=== PATIENT | male | born 1940 | race American Indian/Alaskan Native ===

== ENCOUNTER 2018-12-16 13:49 | Observation (INO) | payer MEDICARE ==
[2018-12-16 14:35] VITALS: O2SAT 98
[2018-12-16 15:39] LABS: BASO # 0.01 K/mm3 (0.0-2.0); BASO % 0.2 % (0.0-3.0); EOS % 0.8 % (1.5-5.0); HEMOGLOBIN 11.1 g/dL (14.0-18.0); LYMPH # 1.9 (1.2-3.4); LYMPH % 36.8 % (22.0-35.0); MEAN CELL VOLUME 61.3 fl (80.0-105.0); MEAN CORPUSCULAR HGB CONC 32.6 g/dl (31.0-37.0); MEAN PLATELET VOLUME 9.4 fl (7.0-11.0); MONO # 0.4 (0.1-0.6); RBC 5.56 10^6/uL (3.5-6.1); RED CELL DISTRIBUTION WIDTH 14.5 % (11.5-14.5); WHITE BLOOD COUNT 5.1 10^3/uL (4.5-11.0)
[2018-12-16] MEDS ORDERED: Iohexol 240 (50 ml) ONE (15:39)
[2018-12-16 15:49] LABS: INR 1.18; PARTIAL THROMBOPLASTIN TIME 31.6 Seconds (26.9-38.3); PROTHROMBIN TIME 13.1 SECONDS (9.4-12.5); URINE BILIRUBIN NEGATIVE (NEGATIVE); URINE BLOOD NEGATIVE (NEGATIVE); URINE GLUCOSE (UA) >=1000 mg/dL (NEGATIVE); URINE LEUKOCYTE ESTERASE NEGATIVE Leu/uL (NEGATIVE); URINE PROTEIN NEGATIVE mg/dL (<30 mg/dL); URINE UROBILINOGEN 0.2 E.U./dL (<1 E.U./dL)
[2018-12-16 15:50] LABS: URINE APPEARANCE CLEAR (CLEAR); URINE COLOR YELLOW (YELLOW)
[2018-12-16 16:00] LABS: TROPONIN I < 0.01 ng/mL
[2018-12-16 16:12] LABS: ALB/GLOB RATIO 1.1 (1.1-1.8); ALBUMIN 4.1 g/dL (3.0-4.8); ALT/SGPT 69 U/L (7-56); AST/SGOT 48 U/L (17-59); BLOOD UREA NITROGEN 26 mg/dL (7-21); CALCIUM 9.4 mg/dL (8.4-10.5); GFR NON-AFRICAN AMERICAN > 60; LIPASE 75 U/L (23-300)
[2018-12-16] MEDS ORDERED: Sodium Chloride 0.9% 500 ML IV STA (16:31)
--- NOTE | 2018-12-16 16:38 | ED PDOC ---
Arrival/HPI - General Chief Complaint: Abdominal Pain Time Seen by Provider: 12/16/18 14:10 Historian: Patient - History of Present Illness Narrative History of Present Illness (Text): 12/16/18 16:29 A 78 year old male, whose past medical history includes diabetes and hypertension, presents to the emergency department complaining of mid-abdominal pain for a while now. Patient reports was just seen 2 nights at [facility] and was evaluated. Patient was released yesterday from [facility]. States CT Abd/Pelvis was performed. Today, he was on his way to [employer] when he started developing pain from lower abdomen, radiating up to the epigastric region. He thought it had to do with needing to eat so he went to have some food, however had no relief. Patient denies any fever, chills, nausea, vomiting, diarrhea, chest pain, shortness of breath, cough, or any other complaints at this time. Past Medical History - Provider Review Nursing Documentation Reviewed: Yes - Cardiac Hx Hypertension: Yes - Psychiatric Hx Substance Use: No Family/Social History - Physician Review Nursing Documentation Reviewed: Yes Family/Social History: No Known Family HX Smoking Status: Never Smoked Hx Alcohol Use: No Hx Substance Use: No Allergies/Home Meds Allergies/Adverse Reactions: Allergies No Known Allergies Allergy (Verified 12/16/18 14:35) Home Medications: Home Meds Medication Instructions Recorded Confirmed No Known Home Med 12/16/18 12/16/18 Review of Systems - Physician Review All systems were reviewed & negative as marked: Yes - Review of Systems Constitutional: absent: Fevers, Night Sweats Respiratory: absent: SOB Cardiovascular: absent: Chest Pain Gastrointestinal: Abdominal Pain. absent: Diarrhea, Nausea, Vomiting Physical Exam Vital Signs Reviewed: Yes Vital Signs Temp Pulse Resp BP Pulse Ox 12/16/18 14:20 97.5 F L 86 18 175/93 H 98 Temperature: Afebrile Blood Pressure: Hypertensive Pulse: Regular Respiratory Rate: Normal Appearance: Positive for: Well-Appearing, Non-Toxic, Comfortable Pain Distress: None Mental Status: Positive for: Alert and Oriented X 3 - Systems Exam Head: Present: Atraumatic, Normocephalic Pupils: Present: PERRL Extroacular Muscles: Present: EOMI Conjunctiva: Present: Normal Mouth: Present: Moist Mucous Membranes Neck: Present: Normal Range of Motion Respiratory/Chest: Present: Clear to Auscultation, Good Air Exchange. No: Respiratory Distress, Accessory Muscle Use Cardiovascular: Present: Regular Rate and Rhythm, Normal S1, S2. No: Murmurs Abdomen: No: Tenderness, Distention, Peritoneal Signs Back: Present: Normal Inspection Upper Extremity: Present: Normal Inspection. No: Cyanosis, Edema Lower Extremity: Present: Normal Inspection. No: Edema Neurological: Present: GCS=15, CN II-XII Intact, Speech Normal Skin: Present: Warm, Dry, Normal Color. No: Rashes Psychiatric: Present: Alert, Oriented x 3, Normal Insight, Normal Concentration Medical Decision Making ED Course and Treatment: 12/16/18 20:52 Plan : - IV - Labs - UA, urine cx - EKG - CXR - Reassess / disposition - CT A/P CXR : NAD. EKG : NSR at 82 bpm, +RBBB, +LVH, +T wave inversions in the lateral leads, no prior EKGs available for comparison. Labs reviewed, trop (-), rest of the labs wnl. CT A/P : IMPRESSION: 1. Mild rectal fecal impaction. Moderate constipation suspected. No bowel obstruction, mesenteric edema or ascites. Uncomplicated diverticular change are scattered involving the colon but primarily at the sigmoid segment. 2. Hepatic steatosis. 3. Sludge and probable cholelithiasis identified within a mildly distended gallbladder. Proximal CBD dilatation up to 8.5 mm without radiodense choledocholithiasis evident. Borderline intrahepatic biliary dilatation. 4. Small cyst mid to lower pole left kidney. 5. Grossly enlarged prostate gland. Repeat EKG : NSR at 74 bpm, +RBBB, +LVH, +T wave inversions in the lateral leads. On reevaluation, patient reports no abdominal pain at this time. On exam, patient remains awake alert and oriented 3 in no acute distress. CT results and the rest of the diagnostic results discussed with the patient in great detail. Patient advised that the abdominal pain may be related to constipation. Patient also advised that he has EKG changes that cannot be determined if they are new or have always existed in the past. Considering the T wave inversions in the lateral leads of the EKG with no prior comparisons, the patient advised that he will need further observation and possible cardiology consult in the morning. Patient is agreeable with this plan. Lactulose and fleet enema ordered for patient's constipation. Case discussed with Dr. Bello, agrees with plan for further observation with cardiology consult Dr. Medina and GI consult with Dr. Ritchie. - Lab Interpretations Lab Results: PT 13.1 SECONDS (9.4-12.5) H 12/16/18 15:15 INR 1.18 12/16/18 15:15 APTT 31.6 Seconds (26.9-38.3) 12/16/18 15:15 Troponin I < 0.01 ng/mL 12/16/18 15:15 Total Bilirubin 0.4 mg/dL (0.2-1.3) 12/16/18 15:15 AST 48 U/L (17-59) 12/16/18 15:15 ALT 69 U/L (7-56) H 12/16/18 15:15 Alkaline Phosphatase 116 U/L (38-126) 12/16/18 15:15 Total Protein 7.9 g/dL (5.8-8.3) 12/16/18 15:15 Albumin 4.1 g/dL (3.0-4.8) 12/16/18 15:15 Globulin 3.8 gm/dL 12/16/18 15:15 Albumin/Globulin Ratio 1.1 (1.1-1.8) 12/16/18 15:15 Lipase 75 U/L (23-300) 12/16/18 15:15 Urine Color Yellow (YELLOW) 12/16/18 15:15 Urine Appearance Clear (CLEAR) 12/16/18 15:15 Urine pH 6.0 (4.7-8.0) 12/16/18 15:15 Ur Specific [place] 1.010 (1.005-1.035) 12/16/18 15:15 Urine Protein Negative mg/dL (<30 mg/dL) 12/16/18 15:15 Urine Glucose (UA) >=1000 mg/dL (NEGATIVE) 12/16/18 15:15 Urine Ketones Negative mg/dL (NEGATIVE) 12/16/18 15:15 Urine Blood Negative (NEGATIVE) 12/16/18 15:15 Urine Nitrate Negative (NEGATIVE) 12/16/18 15:15 Urine Bilirubin Negative (NEGATIVE) 12/16/18 15:15 Urine Urobilinogen 0.2 E.U./dL (<1 E.U./dL) 12/16/18 15:15 Ur Leukocyte Esterase Negative Malu/uL (NEGATIVE) 12/16/18 15:15 - RAD Interpretation Radiology Orders: 12/16/18 14:58 ABD PELVIS PO & IV CONTRAST [CT] Stat 12/16/18 15:00 CHEST ONE VIEW [RAD] Stat - Medication Orders Current Medication Orders: Sodium Chloride (Sodium Chloride 0.9%) 500 mls @ 500 mls/hr IV .Q1H STA Stop: 12/16/18 17:30 - PA / PERSON[employer] WORKERS / Resident Statement MD/DO has reviewed & agrees with the documentation as recorded. - Scribe Statement The provider has reviewed the documentation as recorded by the Kaycee De La Cruz Provider Scribe Attestation: All medical record entries made by the Kaycee were at my direction and personally dictated by me. I have reviewed the chart and agree that the record accurately reflects my personal performance of the history, physical exam, medical decision making, and the department course for this patient. I have also personally directed, reviewed, and agree with the discharge instructions and disposition. Disposition/Present on Arrival - Present on Arrival Any Indicators Present on Arrival: No History of DVT/PE: No History of Uncontrolled Diabetes: No Urinary Catheter: No History of Decub. Ulcer: No History Surgical Site Infection Following: None - Disposition Have Diagnosis and Disposition been Completed?: Yes Diagnosis: Abdominal pain, Constipation, Acute electrocardiogram changes Disposition: HOSPITALIZED Disposition Time: 19:00 Patient Plan: Observation Patient Problems: Current Active Problems Problem Status Onset Abdominal pain Acute Acute electrocardiogram changes Acute Constipation Acute Condition: STABLE
[2018-12-16] MEDS ORDERED: Iohexol 350 MG/100 ML VIAL ONE (16:39)
--- NOTE | 2018-12-16 18:01 | CT ---
Date of service: 12/16/2018 PROCEDURE: CT Abdomen and Pelvis with contrast HISTORY: lower abd pain COMPARISON: None available. TECHNIQUE: Following oral and intravenous contrast administration, a CT examination of the abdomen and pelvis was performed from the domes of the diaphragms to the symphysis pubis with reformatted datasets provided not only axial but also sagittal and coronal series. Contrast dose: Omnipaque 350, 98 cc Radiation dose: Total exam DLP = 582.88 mGy-cm. This CT exam was performed using one or more of the following dose reduction techniques: Automated exposure control, adjustment of the mA and/or kV according to patient size, and/or use of iterative reconstruction technique. FINDINGS: LOWER THORAX: Tiny hiatal hernia identified. No pleural or pericardial effusion evident. Mild cardiomegaly. LIVER: Diminished attenuation of the liver indicates mild hepatic steatosis. A solitary tiny cyst is identified 9 mm greatest dimension at the lower portion right lobe liver. Subtle intrahepatic biliary dilatation question. Proximal CBD dilated to at least 8.5 mm. No radiodense cholelithiasis appreciated within the remainder. The mid and distal CBD appear normal caliber. GALLBLADDER AND BILE DUCTS: Dense layering sludge noted within a mildly dilated gallbladder. Underlying calculi are felt to likely be present given somewhat nodular appearance to the surface of the dependent hyperdense material. Noted gross mural thickening or pericholecystic fluid collection evident. PANCREAS: Unremarkable. No gross lesion or ductal dilatation. SPLEEN: Unremarkable. ADRENALS: Unremarkable. No mass. KIDNEYS AND URETERS: Unremarkable right kidney. A small cyst is seen at the mid to lower pole left kidney. No hydronephrosis bilaterally or solid mass. VASCULATURE: Nonaneurysmal abdominal aortic calcific atherosclerotic changes are identified. BOWEL: A moderate amount retained fecal material scattered throughout the large bowel with mild rectal fecal impaction noted. Scattered colonic diverticular noted, particularly the sigmoid segment common uncomplicated. Opacified small bowel appears normal. No pericolic or Krysta intestinal reaction appreciated. The stomach is collapsed and not well evaluated. APPENDIX: Normal appendix. PERITONEUM: Unremarkable. No free fluid. No free air. LYMPH NODES: Unremarkable. No enlarged lymph nodes. BLADDER: Bladder is nearly completely decompressed with poor evaluation the wall. No radiodense urolithiasis in the lumen or focal nodular changes related. REPRODUCTIVE: Markedly enlarged prostate gland measures 6.4 x 5.7 cm. BONES: No acute fracture. OTHER FINDINGS: None. IMPRESSION: 1. Mild rectal fecal impaction. Moderate constipation suspected. No bowel obstruction, mesenteric edema or ascites. Uncomplicated diverticular change are scattered involving the colon but primarily at the sigmoid segment. 2. Hepatic steatosis. 3. Sludge and probable cholelithiasis identified within a mildly distended gallbladder. Proximal CBD dilatation up to 8.5 mm without radiodense choledocholithiasis evident. Borderline intrahepatic biliary dilatation. 4. Small cyst mid to lower pole left kidney. 5. Grossly enlarged prostate gland.
--- NOTE | 2018-12-16 18:30 | RAD ---
Date of service: 12/16/2018 HISTORY: abd pain COMPARISON: None available. FINDINGS: LUNGS: No active pulmonary disease. PLEURA: No significant pleural effusion identified, no pneumothorax apparent. CARDIOVASCULAR: No aortic atherosclerotic calcification present. Mild cardiomegaly likely though technical magnification is present to some degree. No pulmonary vascular congestion. OSSEOUS STRUCTURES: No significant abnormalities. VISUALIZED UPPER ABDOMEN: Normal. OTHER FINDINGS: None. IMPRESSION: No acute consolidation or pulmonary vascular congestion. Likely limited cardiomegaly.
[2018-12-16 22:32] VITALS: BMI 27.0
[2018-12-16] MEDS ORDERED: Insulin Regular 1 UNITS/0.01 ML ML SC STA (22:41)
--- NOTE | 2018-12-17 01:56 | CP.PCM.PN ---
Subjective - Date & Time of Evaluation Date of Evaluation: 12/17/18 Time of Evaluation: 01:53 - Subjective Subjective: S: I was asked to co sign order of 8 units regular insulin SC. It was ordered for FSBS 424 mg %. Pertinent medical record was reviewed. O:VSS. Not in acute distress. Patient is asleep now. LUNGS: Normal breathing pattern. A: Hyperglycemia. P: Regular insulin 8 Untis SC stat. Objective - Vital Signs/Intake and Output Vital Signs (last 24 hours): Temp Pulse Resp BP Pulse Ox 98 F 80 18 171/90 H 98 12/16/18 21:06 12/16/18 21:13 12/16/18 22:32 12/16/18 21:13 12/16/18 21:06 - Labs Labs: 12/16/18 15:15 12/16/18 15:15 PT 13.1 SECONDS (9.4-12.5) H 12/16/18 15:15 INR 1.18 12/16/18 15:15 APTT 31.6 Seconds (26.9-38.3) 12/16/18 15:15 Attending/Attestation - Attestation I have personally seen and examined this patient.: Yes I have fully participated in the care of the patient.: Yes I have reviewed all pertinent clinical information, including history, physical exam and plan: Yes
[2018-12-17 08:45] VITALS: BP 148/70; RESP 20; TEMP 97.7
[2018-12-17] MEDS: Insulin Reg-LOW-Coverage SC SCH ×3 (09:08→17:18)
--- NOTE | 2018-12-17 09:46 | CARD ---
APPROVED REPORT Date of service: 12/16/2018 EKG Measurement Heart [id number] <Conclusion> Normal sinus rhythm Possible Left atrial enlargement Right bundle branch block Left ventricular hypertrophy T wave abnormality, consider inferolateral ischemia Abnormal ECG
--- NOTE | 2018-12-17 09:47 | CARD ---
APPROVED REPORT Date of service: 12/16/2018 EKG Measurement Heart [id number] <Conclusion> Normal sinus rhythm Possible Left atrial enlargement Right bundle branch block Left ventricular hypertrophy T wave abnormality, consider lateral ischemia Abnormal ECG
--- NOTE | 2018-12-17 09:55 | CP.PCM.CON ---
<Craig Dukes - Last Filed: 12/17/18 23:46> History of Present Illness - History of Present Illness History of Present Illness: Craig Dukes PGY2 GI Consult note for Dr. Rocha Reason for consult: constipation Mr. Almendarez is a 78 year old French male with a PMH of DM2 and HTN who is admitted for evaluation of abdominal pain. The patient is a poor historian, but states that he was seen in [facility] and discharged a couple days ago for the same pain; he's unsure what his diagnosis was but states there was a CT done, and he was discharged home. Pharmacy records ([facility]) confirm there was a Losartan, HCTZ and Metformin scripts filled on 12/14/18. The patient states that the pain occurred again, which prompted him to come into the ED. The patient's pain begins in the hypogastric region and radiates toward epigastric region. It is intermittent in nature, and currently his pain has resolved. The patient states that he is not constipated and that his last BM was yesterday, prior to arrival. He denies any nausea/vomiting. Patient denies weight loss, however, he states that his pants have been looser and that his daughter (Linda, ) has been telling him that he is losing weight. He denies any changes in his stool frequency or caliber. 12-pt ROS was reviewed and is otherwise unremarkable. CT A/P in ED: mild rectal fecal impaction, uncomplicated diverticular change primarily at sigmoid segment, hepatic steatosis, sludge and probable cholel ithiasis w/i mildly distended GB. PMH: as above PSH: none Meds: Losartan 50mg daily, HCTZ 25mg daily, Metformin 500mg BID Allergies: NKDA SHx: denies current or prior use of tobacco, EtOH or drug use; worked as bus van driver FHx: patient unaware of prior family hx Review of Systems - Review of Systems All systems: reviewed and no additional remarkable complaints except (as per HPI) Past Patient History - Past Medical History & Family History Past Medical History?: Yes - Past Social History Smoking Status: Never Smoked Alcohol: None Drugs: Denies Home Situation {Lives}: Alone - CARDIAC Hx Hypertension: Yes - ENDOCRINE/METABOLIC Hx Diabetes Mellitus Type 2: Yes - HEMATOLOGICAL/ONCOLOGICAL Hx Anemia: Yes - MUSCULOSKELETAL/RHEUMATOLOGICAL Hx Falls: No - PSYCHIATRIC Hx Substance Use: No - SURGICAL HISTORY Hx Surgeries: No Meds Home Medications: Home Medication List Medication Instructions Recorded Confirmed Type Aspirin [Aspirin Chewable] 81 mg PO DAILY #30 ctb 12/17/18 Rx Famotidine [Pepcid] 40 mg PO DAILY #30 tablet 12/17/18 Rx Glucose, Blood Test [Blood Glucose 1 packet XX ACHS #1 dev 12/17/18 Rx Test Strips] Lancets 1 each MC ACHS #1 each 12/17/18 Rx amLODIPine [Norvasc] 5 mg PO DAILY #30 tab 12/17/18 Rx metFORMIN [glucOPHAGE] 500 mg PO BID #60 tab 12/17/18 Rx Allergies/Adverse Reactions: Allergies Allergy/AdvReac Type Severity Reaction Status Date / Time No Known Allergies Allergy Verified 12/16/18 14:35 - Medications Medications: Current Medications Insulin Human Regular (Humulin R Low) 0 units SC ACHS [facility]; Protocol Last Admin: 12/17/18 09:08 Dose: 1 unit Losartan Potassium (Cozaar) 25 mg PO DAILY [facility] Last Admin: 12/17/18 09:09 Dose: 25 mg Metformin HCl (Glucophage) 500 mg PO BID [facility] Last Admin: 12/17/18 09:09 Dose: 500 mg Physical Exam - Constitutional Appears: Well, Non-toxic, No Acute Distress - Head Exam Head Exam: ATRAUMATIC, NORMAL INSPECTION - Eye Exam Eye Exam: EOMI, Normal appearance, PERRL - ENT Exam ENT Exam: Mucous Membranes Moist, Normal Exam - Neck Exam Neck exam: Positive for: Full Rom, Normal Inspection - Respiratory Exam Respiratory Exam: NORMAL BREATHING PATTERN. absent: Rales, Rhonchi, Wheezes - Cardiovascular Exam Cardiovascular Exam: RRR, +S1, +S2 - GI/Abdominal Exam GI & Abdominal Exam: Normal Bowel Sounds, Soft. absent: Distended, Tenderness - Rectal Exam Rectal Exam: NORMAL INSPECTION Additional comments: light brown stool no abnormal masses noted - Extremities Exam Extremities exam: Positive for: full ROM, normal inspection. Negative for: pedal edema - Back Exam Back exam: FULL ROM, NORMAL INSPECTION - Neurological Exam Neurological exam: Alert, Oriented x3 - Psychiatric Exam Psychiatric exam: Normal Affect, Normal Mood - Skin Skin Exam: Normal Color, Warm Results - Vital Signs Recent Vital Signs: Last Vital Signs Temp 97.7 F 12/17/18 08:44 Pulse 84 12/17/18 09:09 Resp 20 12/17/18 08:44 BP 148/70 12/17/18 09:09 Pulse Ox 98 12/17/18 08:44 - Labs Result Diagrams: 12/16/18 15:15 12/16/18 15:15 Labs: Laboratory Results - last 24 hr 12/16/18 12/16/18 12/16/18 15:15 15:15 15:15 WBC 5.1 RBC 5.56 Hgb 11.1 L Hct 34.1 L MCV 61.3 L MCH 20.0 L MCHC 32.6 RDW 14.5 Plt Count 158 MPV 9.4 Neut % (Auto) 54.2 Lymph % (Auto) 36.8 H Coke % (Auto) 8.0 H Eos % (Auto) 0.8 L Baso % (Auto) 0.2 Lymph # (Auto) 1.9 Coke # (Auto) 0.4 Eos # (Auto) 0.0 Baso # (Auto) 0.01 Absolute Neuts (auto) 2.79 PT 13.1 H INR 1.18 APTT 31.6 Sodium 134 Potassium 4.2 Chloride 98 Carbon Dioxide 28 Anion Gap 12 BUN 26 H Creatinine 0.9 Est GFR ( Amer) > 60 Est GFR (Non-Af Amer) > 60 POC Glucose (mg/dL) Random Glucose 347 H* Calcium 9.4 Magnesium 1.9 Total Bilirubin 0.4 AST 48 ALT 69 H Alkaline Phosphatase 116 Troponin I < 0.01 Total Protein 7.9 Albumin 4.1 Globulin 3.8 Albumin/Globulin Ratio 1.1 Lipase 75 Urine Color Urine Appearance Urine pH Ur Specific [place] Urine Protein Urine Glucose (UA) Urine Ketones Urine Blood Urine Nitrate Urine Bilirubin Urine Urobilinogen Ur Leukocyte Esterase 12/16/18 12/16/18 12/17/18 15:15 18:47 07:27 WBC RBC Hgb Hct MCV MCH MCHC RDW Plt Count MPV Neut % (Auto) Lymph % (Auto) Coke % (Auto) Eos % (Auto) Baso % (Auto) Lymph # (Auto) Coke # (Auto) Eos # (Auto) Baso # (Auto) Absolute Neuts (auto) PT INR APTT Sodium Potassium Chloride Carbon Dioxide Anion Gap BUN Creatinine Est GFR ( Amer) Est GFR (Non-Af Amer) POC Glucose (mg/dL) 251 H 158 H Random Glucose Calcium Magnesium Total Bilirubin AST ALT Alkaline Phosphatase Troponin I Total Protein Albumin Globulin Albumin/Globulin Ratio Lipase Urine Color Yellow Urine Appearance Clear Urine pH 6.0 Ur Specific [place] 1.010 Urine Protein Negative Urine Glucose (UA) >=1000 Urine Ketones Negative Urine Blood Negative Urine Nitrate Negative Urine Bilirubin Negative Urine Urobilinogen 0.2 Ur Leukocyte Esterase Negative Assessment & Plan - Assessment and Plan (Free Text) Assessment: 78 year old French male with a PMH of DM2 and HTN who is admitted for evaluation of abdominal pain, likely due to biliary colic. In setting of anemia, and recent weight loss, colorectal cancer should be ruled out. Plan: - Cardiology following for r/o ACS - PPI for GI ppx - recommend mag cit for constipation - Anemia w/u ordered - avoid NSAIDS if possible - patient will require EGD/colonoscopy, which can be done as outpatient Case was reviewed and discussed with attending, Dr. Rocha <Brittaney Rocha V - Last Filed: 12/18/18 00:19> Results - Vital Signs Recent Vital Signs: Last Vital Signs Temp 97.7 F 12/17/18 08:44 Pulse 80 12/17/18 18:00 Resp 20 12/17/18 08:44 BP 148/70 12/17/18 09:09 Pulse Ox 98 12/17/18 08:44 - Labs Result Diagrams: 12/16/18 15:15 12/16/18 15:15 Labs: Laboratory Results - last 24 hr 12/16/18 12/17/18 12/17/18 18:47 07:27 11:00 Retic Count POC Glucose (mg/dL) 251 H 158 H Iron 52 TIBC 326 % Saturation 16 L Transferrin Ferritin Vitamin B12 12/17/18 12/17/18 12/17/18 11:00 11:00 11:00 Retic Count 0.96 POC Glucose (mg/dL) Iron TIBC % Saturation Transferrin 263.25 Ferritin 120.0 Vitamin B12 784 12/17/18 12/17/18 11:45 15:49 Retic Count POC Glucose (mg/dL) 262 H 297 H Iron TIBC % Saturation Transferrin Ferritin Vitamin B12 Attending/Attestation - Attestation I have personally seen and examined this patient.: Yes I have fully participated in the care of the patient.: Yes I have reviewed all pertinent clinical information: Yes Notes (Text): This is an addendum to GI consult report dictated by the medical record coder. The patient was seen and examined earlier. Medical records, lab studies, imagings were reviewed. Last 24 hours events reviewed. Agreed with the above treatment plan as outlined in resident 's notes with the addition of the following ct scan was reviewed large amount of stool present start laxatives elective colonoscopy 12/18/18 00:15 12/18/18 00:19
[2018-12-17 11:32] LABS: IRON 52 ug/dL (45-180)
[2018-12-17 11:41] LABS: % IRON SATURATION 16 % (20-55); TOTAL IRON BINDING CAPACITY 326 ug/dL (261-462)
[2018-12-17] MEDS ORDERED: Pantoprazole 40 mg EC Tab PO SCH (12:15)
[2018-12-17] MEDS ORDERED: Magnesium Citrate Oral SOL (300 ml) PO ONE (16:42)
[2018-12-17 18:02] VITALS: PULSE 80
--- NOTE | 2018-12-17 18:31 | CON ---
DATE OF CONSULTATION: 12/17/2018 CARDIOLOGY CONSULTATION HISTORY: The patient is a 78-year-old male, who presents with nonspecific abdominal pain. PAST MEDICAL HISTORY: The patient's past medical history includes diabetes and hypertension; however, the patient is not aware of any primary care doctor that he sees. He was seen at [facility] where he was discharged after his symptoms improved. He denies angina with no previous cardiac history. Routine EKG revealed marked ST-T changes. The patient denies angina, denies shortness of breath, and is able to walk as far as he wants to walk without issues. SOCIAL HISTORY: The patient does not smoke. REVIEW OF SYSTEMS: A 14-point review of systems is reviewed in detail. No cardiac symptoms were noted. PHYSICAL EXAMINATION: VITAL SIGNS: Blood pressure 148/70, the heart rate is in the 80s. NECK: Negative JVD. LUNGS: Without rales. HEART: Reveals S1, S2 with a short 2/6 systolic ejection murmur. EXTREMITIES: Without clubbing, cyanosis, or edema. IMAGING STUDIES: EKG shows normal sinus rhythm with an incomplete right bundle-branch block with marked ST-T changes and marked T-wave inversions. LABORATORY DATA: Glucose on admission was 347, it is down to 262. BUN and creatinine, unremarkable. Troponin x1 is negative. The hemoglobin is 11. IMPRESSION: 1. Nonspecific abdominal pain. 2. Abnormal EKG. 3. Diabetes mellitus. 4. Hypertension. 5. Anemia. PLAN: Given these findings, the patient's abdominal pain is markedly improved and should be treated conservatively. I have discussed with the patient about his markedly abnormal EKG. We will need to do a cardiac workup. This can be all done as an outpatient as long as his abdominal pain is better. We will order an echocardiogram today. Yuri Medina MD
--- NOTE | 2018-12-18 03:30 | CP.PCM.PN ---
Subjective - Date & Time of Evaluation Date of Evaluation: 12/18/18 Time of Evaluation: 03:29 - Subjective Subjective: S: Patient was seen for elevated blood pressure reading. Asymptomatic. Medical record was reviewed. O: Stable. Not in distress. LUNGS: Normal breathing pattern. A:Elevated blood pressure reading. P:Hydralazine as ordered. Objective - Vital Signs/Intake and Output Vital Signs (last 24 hours): Temp Pulse Resp BP Pulse Ox 97.7 F 80 20 148/70 98 12/17/18 08:44 12/17/18 18:00 12/17/18 08:44 12/17/18 09:09 12/17/18 08:44 - Labs Labs: 12/16/18 15:15 12/16/18 15:15 PT 13.1 SECONDS (9.4-12.5) H 12/16/18 15:15 INR 1.18 12/16/18 15:15 APTT 31.6 Seconds (26.9-38.3) 12/16/18 15:15
--- NOTE | 2018-12-19 15:55 | CARD ---
APPROVED REPORT Date of service: 12/17/2018 EXAM: Two-dimensional and M-mode echocardiogram with Doppler and color Doppler. INDICATION Abnormal EKG/Arrhythmia 2D DIMENSIONS Left Atrium (2D)4.1 (1.6-4.0cm)IVSd2.0 (0.7-1.1cm) LVDd4.0 (3.9-5.9cm)PWd1.5 (0.7-1.1cm) LVDs2.5 (2.5-4.0cm)FS (%) 37.3 % LVEF (%)68.0 (>50%) M-Mode DIMENSIONS Aortic Root2.20 (2.2-3.7cm)Aortic Cusp Exc.1.60 (1.5-2.0cm) Aortic Valve AoV Peak Ltremnqz813.0cm/Bhargavi Peak GR.9mmHg Mitral Valve MV E Yvdylpfn93.8cm/sMV A Vgjkvnoa48.8cm/sE/A ratio0.6 TDI E/Lateral E'0.0E/Medial E'0.0 Tricuspid Valve TR Peak Qxssrhvx991jo/sRAP [id number] Peak Gr.16mmHg [id number] LEFT VENTRICLE There is mild to moderate concentric left ventricular hypertrophy. The left ventricular function is normal. The left ventricular ejection fraction is within the normal range. RIGHT VENTRICLE The right ventricle is normal size. ATRIA The left atrium is moderately dilated. The right atrium is mildly dilated. AORTIC VALVE The aortic valve is calcified but opens well. There is trace to mild aortic regurgitation. MITRAL VALVE The mitral valve is thickened but opens well. Mitral regurgitation is trace to mild. TRICUSPID VALVE The tricuspid valve leaflets are thickened , but open well. There is mild tricuspid regurgitation. There is no pulmonary hypertension. PULMONIC VALVE The pulmonic valve is mildly thickened. PERICARDIAL EFFUSION There is no pericardial effusion. <Conclusion> LVH with good LV function DIlated LA MIld AI, MR and TR No pulmonary hypertension
== END 2018-12-17 19:52 | disposition home or self-care (01) ==
LOC: ED 13:49 → ERH 19:01 → 3RNO 21:39
PROVIDERS: ADMIT Internal Medicine; ATTEND Internal Medicine
DX: K56.41 Fecal impaction (principal); R10.9 Unspecified abdominal pain; E11.65 Type 2 diabetes mellitus with hyperglycemia; I10 Essential (primary) hypertension; D64.9 Anemia, unspecified; K76.0 Fatty (change of) liver, not elsewhere classified; K80.20 Calculus of gallbladder without cholecystitis without obstruction; Z79.82 Long term (current) use of aspirin; Z79.84 Long term (current) use of oral hypoglycemic drugs; Z79.899 Other long term (current) drug therapy; N28.1 Cyst of kidney, acquired; N40.0 Benign prostatic hyperplasia without lower urinary tract symptoms; I45.10 Unspecified right bundle-branch block; R94.31 Abnormal electrocardiogram [ECG] [EKG]
CPT/HCPCS: 36415; 71045; 74177; 80053; 81003; 82607; 82728; 82747; 82948; 83540; 83690; 83735; 84466; 84484; 85025; 85044; 85610; 85730; 87086; 93005; 93306; 96374; 99285; G0378; J0360; J7030; Q9966; Q9967